=== PATIENT | male | born 1990 | race Caucasian/White ===

== ENCOUNTER 2018-02-17 21:55 | Emergency (ER) | payer OTHER ==
[~2018-02-17] VITALS: Ht 175.3 cm; Wt 91.8 kg
[~2018-02-17 21:55] MED LIST: ACCUNEB SO1.25 MG/1 INH; ACYCLOVIR 400400 MG PO; ALBUTEROL2.5 MG/31 INH; AMOXICILLIN500 M1 PO; AUGMENTIN 875-1 EACH PO; BACTRIM DS TAB1 EACH PO; CLEOCIN HCL300 MG PO; DELTASONE20 MG PO; DIFLUCAN150 MG PO; DOXYCYCLINE 10100 MG PO; FLEXERIL PO; HYDROCODONE-AP1 EAC6 PO; IBUPROFEN 800800 MG PO; KEFLEX500 MG PO; MEDROLDOSEPACK PO; NEBULIZER MISCELL; NOHOMEMEDICATIONS; NORCO 5-325 TA1 EACH PO; PHENERGAN 25 MG25 MG PO; PREDNISONE 10 M10 MG PO; PREDNISONE 20 M20 M1 PO; PREDNISONE 20 M20 MG PO; PROAIR HFA8.5 GM PO; PROVENTIL INH; TRAMADOL 50 MG50 MG PO; VENTOLIN HFA 1818 GM INH; VICODIN 5-5001 EACH PO; ZPAK PO; ZYRTEC10 MG
[2018-02-17] MEDS ORDERED: PROAIR HFA8.5 GM INH (23:25)
[2018-02-17] MEDS ORDERED: PREDNISONE50 MG PO (23:25)
[2018-02-17 23:46] VITALS: BP 118/86
--- NOTE | 2018-02-18 09:58 | EKG ---
[place] [address] ELECTROCARDIOGRAM REPORT Name: HERNESTOKC STORM Room: [facility]#: [id number] Admission: 02/17/18 Attend Phys: Discharge: 02/17/18 Date of : 86 Report #: [id number] THIS REPORT FOR: //name// [facility] ED Test Date: 2018-02-17 Test Time: 22:00:39 Pat Name: CK ERIC Department: Room: Gender: M Bpm Analyst: RAGHU : 1990 Requested By: Poly Gamez Order Number: [id number] Reading MD: Osei Robertson Measurements Intervals [place] Rate: 80 P: 26 IN: 145 QRS: -1 QRSD: 84 T: 19 QT: 357 QTc: 412 Interpretive Statements Sinus rhythm Compared to ECG 02/09/2016 23:11:43 Sinus tachycardia no longer present Electronically Signed On 02-18-2018 9:58:10 CDT by Osei Robertson [email or web address] <ELECTRONICALLY SIGNED> By: Osei Roebrtson MD, [facility] 02/18/18 0958 2200 2200 Osei Robertson MD, FACC /EPI
== END 2018-02-17 23:50 | disposition home or self-care (01) ==
LOC: M.ERS 21:55
DX: J45.901 Unspecified asthma with (acute) exacerbation (principal); F17.210 Nicotine dependence, cigarettes, uncomplicated

== ENCOUNTER 2020-08-16 13:22 | Emergency (ER) | payer OTHER ==
[~2020-08-16] VITALS: Ht 175.3 cm; Wt 86.2 kg
[~2020-08-16 13:22] MED LIST changes: +PREDNISONE50 MG PO; +PROAIR HFA8.5 GM INH
[2020-08-16 13:57] VITALS: BP 143/87
[2020-08-16] MEDS ORDERED: CLARITIN10 MG PO (14:23)
[2020-08-16] MEDS ORDERED: PREDNISONE 10 M10 MG PO (14:23)
[2020-08-16] MEDS ORDERED: TRIAMCINOLONE A80 G2 TOP (14:23)
[2020-08-16] MEDS ORDERED: PROAIR HFA8.5 GM INH (14:23)
== END 2020-08-16 14:43 | disposition home or self-care (01) ==
LOC: M.ERS 13:22
DX: R06.02 Shortness of breath (principal); R21 Rash and other nonspecific skin eruption; Z76.0 Encounter for issue of repeat prescription; J45.909 Unspecified asthma, uncomplicated; F17.210 Nicotine dependence, cigarettes, uncomplicated

== ENCOUNTER 2020-10-31 09:59 | Emergency (ER) | payer OTHER ==
[~2020-10-31] VITALS: Ht 175.3 cm; Wt 81.7 kg
[~2020-10-31 09:59] MED LIST changes: +CENTANY30 GM TOP; +CIPROFLOXIN HC2.5 M1 OPHTHALMIC; +CLARITIN10 MG PO; +HYDROCODON-ACE1 EAC7 PO; +TRIAMCINOLONE A80 G2 TOP
[2020-10-31 10:06] VITALS: BP 169/110
[2020-10-31] MEDS ORDERED: RAYOS5 MG PO (10:09)
[2020-10-31] MEDS ORDERED: CLEOCIN HCL150 MG PO (10:20)
[2020-10-31] MEDS ORDERED: IBUPROFEN 600600 M1 PO (10:20)
[2020-10-31] MEDS ORDERED: APAP W/CODEINE1 TA2 PO (10:20)
[2020-10-31] MEDS ORDERED: LIDOCAINE VISC100 ML SWISH&SPIT (10:20)
== END 2020-10-31 10:31 | disposition home or self-care (01) ==
LOC: M.ERS 09:59
DX: K04.7 Periapical abscess without sinus (principal); J45.909 Unspecified asthma, uncomplicated; F17.210 Nicotine dependence, cigarettes, uncomplicated; Z79.899 Other long term (current) drug therapy